=== PATIENT | female | born 1945 | race Caucasian/White ===

== ENCOUNTER 2022-11-09 10:33 | Emergency (ER) | payer MEDICARE, OTHER ==
[~2022-11-09] VITALS: Ht 157.5 cm; Wt 72.7 kg
[2022-11-09] MEDS ORDERED: HYDROcodone/acetaminophen 5mg/325mg tablet PO ONE (15:30)
[2022-11-09] MEDS ORDERED: proCHLORperazine 10mg tablet PO ONE (15:30)
[2022-11-09] MEDS ORDERED: meclizine 12.5mg tablet PO ONE (15:30)
[2022-11-09 16:00] VITALS: BP 147/61
[2022-11-09] MEDS ORDERED: triamcinolone acetonide 40mg/ml inj IM ONE (16:05)
[2022-11-09] MEDS ORDERED: PROC-8 PO ×2 (16:15)
[2022-11-09] MEDS ORDERED: MECL-159 PO ×2 (16:15)
[2022-11-09] MEDS ORDERED: HYDR-3965 PO ×2 (16:15)
[2022-11-16] MEDS ORDERED: LEVO50TA8 PO (22:30)
[2022-11-18] MEDS ORDERED: NOR5T PO (11:10)
[2022-11-18] MEDS ORDERED: ATOR20TA66 PO (11:10)
[2022-11-18] MEDS ORDERED: POTA-206 PO (11:10)
[2022-11-18] MEDS ORDERED: ASPI-1071 PO (11:10)
[2022-11-18] MEDS ORDERED: HYDR25TA4 PO (11:10)
[2022-11-18] MEDS ORDERED: CLOP75TA34 PO (11:10)
== END 2022-11-09 17:10 | disposition home or self-care (01) ==
LOC: ER 10:34
DX: R51.9 Headache, unspecified (principal); M79.2 Neuralgia and neuritis, unspecified; H92.09 Otalgia, unspecified ear; I10 Essential (primary) hypertension; E03.9 Hypothyroidism, unspecified; M19.90 Unspecified osteoarthritis, unspecified site
CPT/HCPCS: 96372; 99284; J3301; J8597; Q0164

== ENCOUNTER 2025-05-22 16:32 | Emergency (ER) | payer MEDICARE, OTHER ==
[~2025-05-22] VITALS: Ht 157.5 cm; Wt 65.8 kg
[~2025-05-22 16:32] MED LIST: ASPI-1071 PO; ATOR20TA66 PO; CLOP75TA34 PO; HYDR25TA4 PO; LEVO50TA8 PO; NOR5T PO; POTA-206 PO
--- NOTE | 2025-05-22 17:18 | Physician Documentation ---
History of Present Illness Chief Complaint: See Chief Complaint Stated Complaint: IRREGULAR HR Primary Medical Doctor: [facility] HPI Year old female that presents to the emergency department for evaluation of intermittent thumping in her chest patient reports that over the last couple of days she has had this intermittent sensation in her chest despite resting moving around sitting sleeping nothing seems to change or exacerbate the issue. Reports he has a history of hypothyroidism and was told during her hospitalization 2 years ago that she has heart failure. Patient denies any chest pain shortness of breath chest discomfort or pressure at this time. Patient does report a history significant for stroke 2 years ago. No other symptoms reported at this time. Medication Reconciliation Allergies: Coded Allergies: amoxicillin (Verified Allergy, Severe, 05/22/25) clavulanic acid (Verified Allergy, Severe, 05/22/25) Scheduled Amlodipine Besylate (Amlodipine Besylate), 10 MG PO DAILY Aspirin (Ecotrin*), 1 TAB PO DAILY Atorvastatin Calcium (Atorvastatin Calcium), 40 MG PO DAILY Clopidogrel Bisulfate (Clopidogrel), 75 MG PO DAILY Hydrochlorothiazide (Hydrochlorothiazide), 25 MG PO DAILY Levothyroxine Sodium (Levothyroxine Sodium), 1 TAB PO DAILY@0900, (Reported) Potassium Chloride (K-Dur), 10 MEQ PO DAILY Past Medical History Past Medical History: Hypertension, Hypothyroidism, Arthritis Past Surgical History: no surgical history Alcohol Use: None Drug Use: none Lives with: Family Lives In: Home Occupation: retired Review of Systems ROS As stated above in the HPI, otherwise all systems are reviewed and negative. Physical Exam Vital Signs: Temperature: 98.0, Source: Temporal, Heart Rate: 84, Respiratory Rate: 16, BP: 166/89, Pulse Oximetry: 96, Weight: 65.800 Oxygen Flow Rate: 0 Physical Exam VITALS: Reviewed and as above. GENERAL: Alert, no apparent distress. HEENT: Normocephalic, atraumatic, PERRL, EOMI, dry mucosa, no erythema RESPIRATORY: Lungs clear, normal breath sounds, no respiratory distress. CHEST: No accessory muscle use, no retractions CV: Regular rate, rhythm, no edema, no murmur, No: JVD GI: Soft, non-tender, bowels sounds present, no rebound, guarding, or rigidity BACK: No CVA tenderness, or swelling MUSCULOSKELETAL No deformities, no edema SKIN: Warm and dry, no rash NEURO: Oriented x4, No motor or sensory deficit PSYCH: Normal mood and affect, no agitation Progress Results/Orders Results/Orders Orders - MELISSA WALLACE PROFESSOR COMPUTER SCIENCE Chest,Single View (05/22/25 17:11) Monitor (05/22/25 17:11) Saline Lock (05/22/25 17:11) Oxygen (05/22/25 17:11) Cbc/Diff (05/22/25:11) PBNP (05/22/25:11) Electrocardiogram (05/22/25 17:11) Hs Troponin I W Calculations (05/22/25 17:11) Hs Troponin I W Calculations (05/22/25 19:11) Hs Troponin I W Calculations (05/22/25 20:11) CMP (05/22/25 17:11) Vital Signs 05/22/25 17:07 Temp 98.0 Pulse 84 Resp 16 B/P (MAP) 166/89 Pulse Ox 96 O2 Flow Rate 0 Medical Decision Making Findings Patient is an 79-year-old female that presents to the emergency department for evaluation of palpitations. Given history, exam and workup, low suspicion for HF, ICH (no trauma, headache), seizure (no witnessed seizure like activity, no postictal period, tongue laceration, bladder incontinence), stroke (no focal neuro deficits), HOCM (no murmur, family history of sudden ), ACS (neg troponin, negative EKG, negative chest x-ray, no anginal pain), aortic dissection (no chest pain), malignant arrhythmia on ekg or any family history of sudden , or GI bleed (stable hgb). Low suspicion for PE given normal vital signs, absence of chest pain or dyspnea, no evidence of DVT, no recent surgery/immobilization. Based on jordanian syncope rule, patient is low risk and well appearing here, plan to discharge the patient home with PMD follow up. Patient will return to the emergency department with any worsening or recurrent symptoms or any additional concerning symptoms that we discussed here today i.e. chest pain shortness of breath lightheadedness dizziness numbness and tingling or any other concerning symptoms. Admitted to the patient that she follow up with her primary care provider for placement of a ZIO patch or a Holter monitor. I have asked the patient please return to please return to the emergency department if she has any worse recurrent symptoms or any additional concerning symptoms that we discussed here today i.e. shortness of breath chest pain increased palpitations chest pressure lightheadedness dizziness or any other concerning symptoms. Differential Dx:Considerations: Include: AAA, -Complete, - Incomplete, -Inevitable, -Missed, -Threatened, Abruptio placentae, Angina/PR, Aortic dissection, Appendicitis, Bowel obstruction, Cholangitis, Cholelithasis, Constipation, Diverticular disease, Esophageal rupture, Esophagitis, Gastritis/PUD, Gastroenteritis, GI hemorrhage, Hernia, Hepatitis, Inflammatory BD, Ischemic bowel, Ovarian cyst/torsion, Pancreatitis, PID, Porphyria, Trauma, intraabdominal, Urinary obstruction, Urinary tract infection, Urolithiasis, Other Departure Disposition: 01 HOME / SELF CARE / HOMELESS Impression: Primary Impression: Palpitations Discharge Instructions: Palpitations, [id number] Additional Instructions: Patient is an 79-year-old female that presents to the emergency department for evaluation of palpitations. Given history, exam and workup, low suspicion for HF, ICH (no trauma, headache), seizure (no witnessed seizure like activity, no postictal period, tongue laceration, bladder incontinence), stroke (no focal neuro deficits), HOCM (no murmur, family history of sudden ), ACS (neg troponin, negative EKG, negative chest x-ray, no anginal pain), aortic dissection (no chest pain), malignant arrhythmia on ekg or any family history of sudden , or GI bleed (stable hgb). Low suspicion for PE given normal vital signs, absence of chest pain or dyspnea, no evidence of DVT, no recent surgery/immobilization. Based on jordanian syncope rule, patient is low risk and well appearing here, plan to discharge the patient home with PMD follow up. Patient will return to the emergency department with any worsening or recurrent symptoms or any additional concerning symptoms that we discussed here today i.e. chest pain shortness of breath lightheadedness dizziness numbness and tingling or any other concerning symptoms. Admitted to the patient that she follow up with her primary care provider for placement of a ZIO patch or a Holter monitor. I have asked the patient please return to please return to the emergency department if she has any worse recurrent symptoms or any additional concerning symptoms that we discussed here today i.e. shortness of breath chest pain increased palpitations chest pressure lightheadedness dizziness or any other concerning symptoms. Referrals: NO PRIMARY CARE PROVIDER (PCP) Education Educated: Patient Educated regarding: diagnosis, treatment, need for follow up Signature Scribe Signature: A Attestation: Scribed for Melissa Wallace by SHI Ortiz . 05/22/25 20:03 MELISSA WALLACE May 22, 2025 17:18
--- NOTE | 2025-05-22 17:19 | ELECTROCARDIOGRAPH REPORT ---
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 Brain Pedroza Measurements Intervals [place] Rate: 85 P: -4 OK: 173 QRS: -3 QRSD: 93 T: 9 QT: 409 QTc: 487 Interpretive Statements Sinus rhythm Low voltage, precordial leads RSR' in V1 or V2, right VCD or RVH Nonspecific T abnormalities, anterior leads Borderline prolonged QT interval Electronically Signed On 05-22-2025 19:18:[address] Brain Pedroza Please click the below link to view image of tracing.
[2025-05-22 17:31] LABS: MEAN PLATELET VOLUME 6.5 FL (7.4-10.4); RED CELL DISTRIBUTION WIDTH 13.6 % (11.5-14.5)
--- NOTE | 2025-05-22 17:54 | RADIOLOGY REPORT ---
CHEST RADIOGRAPH Indication: CP Technique: Single frontal view of the chest was obtained Comparison: None FINDINGS: Lines and Tubes: None Lungs: No focal consolidation. Indistinctness of the left hemidiaphragm. No pneumothorax. Cardiomediastinal contours: Heart size is within normal limits with mild atherosclerotic calcification and uncoiling of the aorta. Bones: No acute osseous abnormality. IMPRESSION: Indistinctness of the left hemidiaphragm which may be from overlying cardiac silhouette. Underlying trace effusion/ atelectasis can not be completely excluded.
[2025-05-22 18:04] LABS: CREATININE 0.64 MG/DL (0.40-0.90); eCRCL 55 ML/MIN; eGFR 89 ML/MIN
[2025-05-22 18:12] LABS: PRO BRAIN NATRIURETIC PEPTIDE 218 PG/ML (0-450)
[2025-05-22 18:14] LABS: TOTAL CARBON DIOXIDE 30.9 MMOL/L (24-32)
[2025-05-22 19:52] VITALS: BP 141/89; PULSE 68; RESP 14; O2SAT 97
[2025-05-22 20:12] VITALS: TEMP 98
== END 2025-05-22 20:13 | disposition home or self-care (01) ==
LOC: ER 16:32
DX: R00.2 Palpitations (principal); E03.9 Hypothyroidism, unspecified; I11.0 Hypertensive heart disease with heart failure; I50.9 Heart failure, unspecified; M19.90 Unspecified osteoarthritis, unspecified site; Z86.73 Personal history of transient ischemic attack (TIA), and cerebral infarction without residual deficits; Z88.0 Allergy status to penicillin
CPT/HCPCS: 36415; 71045; 80053; 83880; 84484; 85025; 93005; 99285